=== PATIENT | male | born 1985 | race Caucasian/White ===

== ENCOUNTER → 2021-02-16 | Outpatient (CLI) | payer OTHER ==
[2021-02-16 14:16] LABS: RED BLOOD COUNT 5.2 M/UL (4.20-5.50); WHITE BLOOD COUNT 6.2 K/UL (4.5-11.0)
[2021-02-16 14:41] LABS: BUN/CREATININE RATIO 16 (0-10)
== END ==
LOC: LAB 13:05
PROVIDERS: Physician Assistant
DX: Z13.1 Encounter for screening for diabetes mellitus (principal); Z13.220 Encounter for screening for lipoid disorders; Z13.21 Encounter for screening for nutritional disorder; M25.511 Pain in right shoulder; M25.531 Pain in right wrist; E66.9 Obesity, unspecified
CPT/HCPCS: 36415; 73030; 73100; 80053; 80061; 82607; 84439; 84443; 85025

== ENCOUNTER → 2021-06-25 | Outpatient (CLI) | payer BC, OTHER | LOC: RAD 08:20 | DX: S43.431A Superior glenoid labrum lesion of right shoulder, initial encounter (principal) | CPT/HCPCS: 73040; 73222; A9577; Q9967 ==